=== PATIENT | male | born 1970 | race Caucasian/White ===

== ENCOUNTER 2021-06-05 20:32 | Emergency (ER) | payer OTHER ==
[~2021-06-05] VITALS: Ht 182.9 cm; Wt 108.9 kg
[2021-06-05] MEDS ORDERED: ROCEPHIN IM STA (20:52)
[2021-06-05] MEDS ORDERED: LIDOCAINE 1% VIAL ONE (20:52)
[2021-06-05] MEDS ORDERED: MOTRIN PO STA (20:52)
[2021-06-05] MEDS ORDERED: ROCEPHIN ONE (20:52)
[2021-06-05 20:53] VITALS: BP 168/96
[2021-06-05] MEDS ORDERED: MOTRIN ONE (20:58)
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
[2021-06-05 21:05] VITALS: BP_SYST 168
== END 2021-06-05 21:17 | disposition home or self-care (01) ==
LOC: ER 20:32
DX: T24.002A Burn of unspecified degree of unspecified site of left lower limb, except ankle and foot, initial encounter (principal); L03.116 Cellulitis of left lower limb; X17.XXXA Contact with hot engines, machinery and tools, initial encounter; Y93.89 Activity, other specified; Y92.89 Other specified places as the place of occurrence of the external cause; Y99.8 Other external cause status
CPT/HCPCS: 96372; 99283; J0696; J2001